=== PATIENT | female | born 1965 | race Caucasian/White ===

== ENCOUNTER 2016-06-04 14:03 | Emergency (ER) | payer OTHER | END 2016-06-04 17:35 | disposition home or self-care (01) | LOC: ER 14:03 | DX: J11.1 Influenza due to unidentified influenza virus with other respiratory manifestations (principal); J43.9 Emphysema, unspecified; R53.1 Weakness; G89.29 Other chronic pain; M54.9 Dorsalgia, unspecified; F17.210 Nicotine dependence, cigarettes, uncomplicated; Z79.899 Other long term (current) drug therapy; Z88.6 Allergy status to analgesic agent | CPT/HCPCS: 71020; 87400; 96372; 99283-25; J2930 ==

== ENCOUNTER 2016-12-06 20:17 | Emergency (ER) | payer OTHER | END 2016-12-06 22:41 | disposition home or self-care (01) | LOC: ER 20:17 | DX: H66.92 Otitis media, unspecified, left ear (principal); J32.9 Chronic sinusitis, unspecified; R53.1 Weakness; J02.9 Acute pharyngitis, unspecified; F17.210 Nicotine dependence, cigarettes, uncomplicated; Z88.6 Allergy status to analgesic agent | CPT/HCPCS: 87400; 99283 ==